=== PATIENT | male | born 1975 | race Caucasian/White ===

== ENCOUNTER 2021-12-24 16:44 | Emergency (ER) | payer MEDICARE ==
[~2021-12-24] VITALS: Ht 185.4 cm; Wt 99.8 kg
[2021-12-24] MEDS ORDERED: TRAZ50 PO ×2 (17:10→17:21)
[2021-12-24] MEDS ORDERED: CHLORPROMAZINE PO ×2 (17:11→17:21)
[2021-12-24] MEDS ORDERED: Budeprion Xl300 MG PO ×2 (17:12→17:21)
[2021-12-24] MEDS ORDERED: PRAZ1 PO ×2 (17:12→17:21)
[2021-12-24] MEDS ORDERED: Ativan1 MG PO (17:13)
[2021-12-24] MEDS ORDERED: Percocet 5-3251 EACH PO (17:13)
[2021-12-24] MEDS ORDERED: PREG200 PO ×2 (17:13→17:21)
== END 2021-12-24 17:45 | disposition home or self-care (01) ==
LOC: ER 16:44 → EDBD 16:44 → ER 17:45
DX: Z76.0 Encounter for issue of repeat prescription (principal); Z79.899 Other long term (current) drug therapy
CPT/HCPCS: 99281